=== PATIENT | male | born 1950 | race Two or more races ===

== ENCOUNTER → 2024-12-08 | Outpatient (CLI) | payer MEDICARE, BC, SELFPAY ==
--- NOTE | 2024-12-08 14:00 | XR_ITS ---
Examination: MRI lumbar spine without contrast Date and time of exam: December 08, 2024 1447 hours INDICATIONS: Low back pain radiating down the left leg beginning 8 weeks ago Technique: Multiple MRI axial and sagittal sections lumbar spine. Sagittal T2-weighted images, TR 3500, TE 118 T1 weighted transverse sections, TR 688 T8.5, T2-weighted sagittal sections T1 weighted sagittal sections TR 621, TE 30 T2 axial sections, TR 4, 190, TE 84. Findings: Adequate alignment lumbar vertebral bodies on the lateral view Diffuse lumbar disc desiccation No lumbar fracture Normal marrow signal lumbar vertebral bodies Moderate disc narrowing L4-L5 L5-S1 large, partially extruded, 10 mm left paracentral subarticular disc, axial image 1, displacing the left S1 nerve root, extending to the left intervertebral foramen with mild left L5 ganglionic compression L4-L5 6 mm central paracentral right subarticular disc bulge displacing the right L5 nerve root More cephalad levels unremarkable IMPRESSION: L5-S1 large, 10 mm, left paracentral subarticular disc, displacing the left S1 nerve root and producing mild left L5 ganglionic compression L4-L5 6 mm central paracentral right subarticular disc displacing the right L5 nerve root
--- NOTE | 2024-12-08 14:00 | XR_ITS ---
Examination: CT left lower extremity, without contrast. 2-D sagittal reconstructions. 2-D coronal reconstructions. 3-D reconstructions. Date and time of exam:December 08, 2024 at 1417 hours INDICATIONS: Onset left hip pain beginning one week ago CTDI: vol (mGy):5.38 DLP: (mGycm):201 Technique: Multiple 1.25 mm axial sections of the left hip have been obtained. 2-D sagittal and coronal reconstructions have been obtained. 3-D reconstructions have been obtained. Low dose protocols were performed. One or more of the following dose reduction techniques were used; automated exposure control, adjustment of the mA and/or KV according to patient size, use of iterative reconstruction technique. Findings: Moderate osteopenia Moderate narrowing right and left hip joints No right or left hip fracture or dislocation No avascular necrosis Bones of the pelvis intact Moderate disc narrowing posteriorly L5-S1, L4-L5 5 mm central lumbar disc bulge IMPRESSION: Moderate narrowing right and left hip joints No hip fractures or dislocations Moderate disc narrowing L5-S1 L4-L5 4 mm central lumbar disc bulge
--- NOTE | 2024-12-08 14:47 | XR_ITS ---
Examination:Left hip AP, lateral, AP pelvis 3 views Technique: Hip AP lateral, AP pelvis, 3 views Exam date and time:December 08, 2024 1610 hours INDICATIONS: Left hip pain beginning 2 weeks ago. FINDINGS: Moderate osteopenia. No active fracture or hip dislocation No avascular necrosis Mild to moderate narrowing hip joints bilaterally IMPRESSION: No hip or pelvic fracture Negative for avascular necrosis. Mild to moderate narrowing hip joints bilaterally.
--- NOTE | 2024-12-08 14:47 | XR_ITS ---
Examination: Lumbar spine, 5 views Technique: Lumbar spine AP, lateral, coned lateral lower lumbar spine, bilateral obliques 5 views Exam date and time: December 08, 2024 1610 hours INDICATIONS: Low back pain radiating to the left hip beginning 2 weeks ago. FINDINGS: Adequate alignment lumbar vertebral bodies on the lateral view No lumbar fracture Prominent lumbar spondylosis Advanced degenerative disc disease L4-L5 Diffuse significant facet arthropathy IMPRESSION: Advanced degenerative disc disease L4-L5
== END | disposition home or self-care (01) ==
PROVIDERS: PCP Specialist; Referring Provider Specialist; Visit Provider Specialist
DX: M51.27 Other intervertebral disc displacement, lumbosacral region (principal); M48.07 Spinal stenosis, lumbosacral region; M51.361 Other intervertebral disc degeneration, lumbar region with lower extremity pain only; M51.06 Intervertebral disc disorders with myelopathy, lumbar region; M25.852 Other specified joint disorders, left hip; M25.851 Other specified joint disorders, right hip
CPT/HCPCS: 72110; 72148; 73502; 73700